=== PATIENT | female | born 1950 | race Caucasian/White ===

== ENCOUNTER 2016-05-12 18:53 | Emergency (ER) | payer MEDICARE, BC ==
[~2016-05-12] VITALS: Ht 154.9 cm; Wt 75.0 kg
[~2016-05-12 18:53] MED LIST: ALIGN; BONI150T PO; PRIL20TA2 PO; TAB-TAB PO; TYLE500T PO
[2016-05-12 18:56] VITALS: BP 139/85; PULSE 80; RESP 14; TEMP 98.2; O2SAT 94
--- NOTE | 2016-05-12 19:39 | PD ---
HPI Chief Complaint: Complaint Time Seen by Provider: 19:38 Travel History International Travel<30 days: No Contact w/Intl Traveler<30days: No Traveled to known affect area: No History of Present Illness HPI 65-year-old female with history of chronic back pain presents to the ED for evaluation of 2 day history of lower abdominal fullness, dysuria and constipation. Symptoms onset gradual. No exacerbating factors reported. She states that she took stool softeners last night and had a soft bowel movement this morning. She endorses occasional small amount of bright red blood per rectum. She states that she feels like she is having difficulties producing urine. She endorses "burning" sensation of the vulva. She denies vaginal pruritus or discharge. Last urination approximately one hour ago. She denies fevers, chills, nausea, vomiting, hematuria, increased urgency, back pain. She was seen on outpatient basis in late March, diagnosed with the UTI, prescribed Cipro. She states that she was pushing fluids in an effort to " flush her kidneys." The patient states that she was admitted to [facility] on 04/29 for treatment of hyponatremia. Review of the paperwork that the patient has provided reveals hyponatremia resolved with water restriction and IV fluids and the patient received IV Rocephin and was prescribed Cefdinir at discharge on 05/01. [facility] Past Medical History Arthritis: Yes Blood Disorders: No Cardiovascular Problems: No Endocrine: No Genitourinary: No Hepatitis: No Immune Disorder: No Musculoskeletal: Yes Neurologic: No Psychiatric: No Reproductive: No Respiratory: No Past Surgical History Appendectomy: No Cholecystectomy: No Joint Replacement: Yes Pacemaker: No Social History Alcohol Use: No Tobacco Use: No Substance Use: No Allergies-Medications (Allergen,Severity, Reaction): Coded Allergies: Morphine (Verified Allergy, Severe, vomiting, 05/12/16) Ceclor (Verified Allergy, Intermediate, Rash, 05/12/16) STATES SHE REACTED FIRST TIME SHE HAD IT, BUT HAS HAD IT SINCE WITH NO REACTION Reported Meds & Prescriptions Reported Meds & Active Scripts Active Review of Systems Except as stated in HPI: all other systems reviewed are Neg Physical Exam Narrative GENERAL: Well-nourished, well-developed anxious, talkative white female in no acute distress. SKIN: Warm and dry. HEAD: Normocephalic. EYES: No scleral icterus. No injection or drainage. NECK: Supple, trachea midline. No JVD or lymphadenopathy. CARDIOVASCULAR: Regular rate and rhythm without murmurs, gallops, or rubs. 2+ DP and radial pulses bilaterally. RESPIRATORY: Breath sounds clear and equal bilaterally. No accessory muscle use. Speaking in complete sentences. GASTROINTESTINAL: Abdomen soft, non-tender, nondistended. Hypoactive bowel sounds. MUSCULOSKELETAL: No cyanosis, or edema. There are multiple scars of the right foot and ankle, all well-healed without signs of infection. The second toe of the right foot is bruised, mildly tender. Patient denies trauma NEUROLOGICAL: Awake and alert. Cranial nerves II through XII intact. Motor and sensory grossly within normal limits. Five out of 5 muscle strength in all muscle groups. Normal speech. BACK: Nontender without obvious deformity. No CVA tenderness. Well-healed incision in the midline lumbar region. No signs of infection. Data Data Last Documented VS Vital Signs Date Time Temp Pulse Resp B/P Pulse Ox O2 Delivery O2 Flow Rate FiO2 05/12/16 21:24 72 16 137/78 98 05/12/16 18:56 98.2 Room Air Orders Urinalysis - C+S If Indicated (05/12/16 19:16) Complete Blood Count With Diff (05/12/16 19:57) Comprehensive Metabolic Panel (05/12/16 19:57) Lactic Acid (05/12/16 19:57) Prothrombin Time / Inr (Pt) (05/12/16 19:57) Act Partial Throm Time (Ptt) (05/12/16 19:57) Iv Access Insert/Monitor (05/12/16 19:57) Ecg Monitoring (05/12/16 19:57) Oximetry (05/12/16 19:57) Sodium Chloride 0.9% Flush (Ns Flush) (05/12/16 20:00) Electrocardiogram (05/12/16 19:57) Labs Laboratory Tests Test 05/12/16 05/12/16 05/12/16 19:09 20:03 20:07 Urine Color YELLOW Urine Turbidity CLEAR Urine pH 6.0 Urine Specific [place] 1.004 Urine Protein NEG mg/dL Urine Glucose (UA) NEG mg/dL Urine Ketones NEG mg/dL Urine Occult Blood NEG Urine Nitrite NEG Urine Bilirubin NEG Urine Urobilinogen LESS THAN 2.0 MG/DL Urine Leukocyte Esterase NEG Urine RBC LESS THAN 1 /hpf Urine WBC LESS THAN 1 /hpf Urine Squamous Epithelial 1 /hpf Cells Urine Bacteria RARE /hpf Microscopic Urinalysis Comment CULT NOT INDICATED White Blood Count 8.1 TH/MM3 Red Blood Count 4.29 MIL/MM3 Hemoglobin 13.6 GM/DL Hematocrit 39.4 % Mean Corpuscular Volume 91.9 FL Mean Corpuscular Hemoglobin 31.8 PG Mean Corpuscular Hemoglobin 34.6 % Concent Red Cell Distribution Width 12.3 % Platelet Count 302 TH/MM3 Mean Platelet Volume 7.7 FL Neutrophils (%) (Auto) 41.5 % Lymphocytes (%) (Auto) 46.2 % Monocytes (%) (Auto) 9.6 % Eosinophils (%) (Auto) 2.2 % Basophils (%) (Auto) 0.5 % Neutrophils # (Auto) 3.4 TH/MM3 Lymphocytes # (Auto) 3.7 TH/MM3 Monocytes # (Auto) 0.8 TH/MM3 Eosinophils # (Auto) 0.2 TH/MM3 Basophils # (Auto) 0.0 TH/MM3 CBC Comment DIFF FINAL Differential Comment Prothrombin Time 10.5 SEC Prothromb Time International 1.0 RATIO Ratio Activated Partial 27.1 SEC Thromboplast Time Sodium Level 133 MEQ/L Potassium Level 3.6 MEQ/L Chloride Level 99 MEQ/L Carbon Dioxide Level 27.1 MEQ/L Anion Gap 7 MEQ/L Blood Urea Nitrogen 14 MG/DL Creatinine 0.84 MG/DL Estimat Glomerular Filtration 68 ML/MIN Rate Random Glucose 128 MG/DL Calcium Level 9.3 MG/DL Total Bilirubin 0.7 MG/DL Aspartate Amino Transf 29 U/L (AST/SGOT) Alanine Aminotransferase 38 U/L (ALT/SGPT) Alkaline Phosphatase 99 U/L Total Protein 7.9 GM/DL Albumin 4.1 GM/DL Lactic Acid Level 1.2 mmol/L MDM Medical Decision Making Medical Screen Exam Complete: Yes Emergency Medical Condition: Yes Differential Diagnosis Cystitis versus pyelonephritis versus constipation versus narcotic ileus versus bowel obstruction versus malingering versus other Narrative Course 65-year-old female with history of chronic back pain, polio presents to the ED for evaluation of 2 day history of lower abdominal fullness, dysuria and constipation. Onset gradual. No exacerbating factors reported. She states that she took stool softeners last night and had a soft bowel movement this morning. She endorses occasional small amount of bright red blood per rectum. She endorses passing gas. She states that she feels like she is having difficulties producing urine. Last urination approximately one hour ago. She endorses "burning" sensation of the vulva. She denies vaginal rash, pruritus or discharge. She denies fevers, chills, nausea, vomiting, hematuria, increased urgency, flank pain. She was seen on outpatient basis in late March , diagnosed with the UTI, prescribed Cipro. She states that she was pushing fluids in an effort to "flush her kidneys." The patient states that she was admitted to [facility] on 04/29 for treatment of hyponatremia. Review of the paperwork that the patient has provided reveals hyponatremia resolved with water restriction and IV fluids and the patient received IV Rocephin and was prescribed Cefdinir at discharge on 05/01. Vitals reviewed. Patient is afebrile, normotensive on presentation. Physical exam reveals an anxious, talkative white female in no acute distress. Chest is clear to auscultation bilaterally. No appreciable M/R/G. Equal pulses in the extremities bilaterally. Abdomen soft, nontender, nondistended. No CVA tenderness. Patient was placed on continuous monitoring, IV was established. Outpatient records were requested from [facility]. CBC: WBC 8.1. Hgb 13.6. CMP: Sodium 133. No concerning abnormalities Coags: INR 1.0 Lactate: 1.2 UA: No culture indicated EK, sinus rhythm. GA interval 178, QRS 99, QTC 422. Normal axis. No ischemic changes. Incomplete RBBB. Reviewed by Dr. Cohen. Given the patient's stable vitals, benign abdominal exam and negative laboratory workup I feel that she is safe for discharge and outpatient follow- up with her primary care provider. I discussed this patient, the workup, plan of care with Dr. Cohen who is in agreement. Discussed the results of the lab work with the patient and her . The patient was reassured by her lab work, although somewhat concerned about her sodium level of 133. I encouraged her to eat and drink normally, follow up with her primary care provider. She endorsed the ability to follow up this week, is amenable to the plan of care. She is stable and discharged home. Diagnosis Primary Impression: Abdominal fullness Referrals: Primary Care Physician Patient Instructions: Constipation (ED), General Instructions Additional Instructions: Rest, hydrate. Increase fiber intake and activity level to promote regular bowel movements. Take previously prescribed medication exactly as written. Follow up with your primary care provider this week. Return to the ED for any urgent or emergent medical condition. Disposition: 01 DISCHARGE HOME Condition: Stable Zully Wilkins May 12, 2016 19:39
[2016-05-12] MEDS ORDERED: SODIUM CHLORIDE 0.9% FLUSH 5 ML FLUSH IVF PRN (20:00)
[2016-05-12 20:01] LABS: BACTERIA, URINE RARE /hpf; BLOOD, URINE NEG (NEG); COMMENT (UR) CULT NOT INDICATED; CULTURE IF INDICATED CULT NOT INDICATED; GLUCOSE,URINE NEG (NEG); KETONE, URINE NEG (NEG); NITRITE,URINE NEG (NEG); SQUAMOUS EPITHELIAL CELL URINE 1 /hpf (0-5); URINE COLOR YELLOW (YELLW/STRAW)
[2016-05-12 20:32] LABS: AUTOMATED NEUTROPHIL # 3.4 TH/MM3 (1.8-7.7); BASOPHIL % 0.5 % (0.0-2.0); EOSINOPHIL # 0.2 TH/MM3 (0-0.4); EOSINOPHIL % 2.2 % (0.0-4.0); HEMATOCRIT 39.4 % (35.0-46.0); HEMO FLAGS DIFF FINAL; LYMPH % 46.2 % (9.0-44.0); LYMPHOCYTE # 3.7 TH/MM3 (1.0-4.8); MEAN CELL VOLUME 91.9 FL (80.0-100.0); MEAN CORPUSCULAR HEMOGLOBIN 31.8 PG (27.0-34.0); MEAN CORPUSCULAR HGB CONC 34.6 % (32.0-36.0); MONO % 9.6 % (0.0-8.0); NEUT % 41.5 % (16.0-70.0); PLATELET COUNT 302 TH/MM3 (150-450); RED BLOOD COUNT 4.29 MIL/MM3 (4.00-5.30); RED CELL DISTRIBUTION WIDTH 12.3 % (11.6-17.2); WHITE BLOOD COUNT 8.1 TH/MM3 (4.0-11.0)
[2016-05-12 20:42] LABS: APTT (PATIENT) 27.1 SEC (24.3-30.1); PROTHROMBIN TIME - PATIENT 10.5 SEC (9.8-11.6)
[2016-05-12 20:44] LABS: ANION GAP 7 MEQ/L (5-15); AST (GOT) 29 U/L (15-37); BICARBONATE 27.1 MEQ/L (21.0-32.0); BLOOD UREA NITROGEN 14 MG/DL (7-18); CHLORIDE 99 MEQ/L (98-107); GLOMERULAR FILTRATION RATE 68 ML/MIN (>89); POTASSIUM 3.6 MEQ/L (3.5-5.1); SODIUM (NA) 133 MEQ/L (136-145)
[2016-05-12 20:47] LABS: ALKALINE PHOSPHATASE 99 U/L (45-117); ALT (GPT) 38 U/L (10-53); TOTAL BILIRUBIN ADULT 0.7 MG/DL (0.2-1.0)
[2016-05-12 21:24] VITALS: BP 137/78
--- NOTE | 2016-05-13 09:25 | EKG ---
Date Performed: 05/12/2016 Time Performed: 20:12:33 PTAGE: 65 years EKG: Sinus rhythm INCOMPLETE RIGHT BUNDLE BRANCH BLOCK BORDERLINE ECG PREVIOUS TRACING : 09/21/2008 12.19 Compared to prior tracing no significant change DOCTOR: Abisai Cohen Interpretating Date/Time 05/13/2016 09:23:27
== END 2016-05-12 21:29 | disposition home or self-care (01) ==
LOC: NEPC 18:53
DX: K59.00 Constipation, unspecified (principal); R30.0 Dysuria; K62.5 Hemorrhage of anus and rectum; G89.29 Other chronic pain; M54.9 Dorsalgia, unspecified; I45.10 Unspecified right bundle-branch block
CPT/HCPCS: 80053; 81001; 83605; 85025; 85610; 85730; 93005